=== PATIENT | female | born 1990 | race Caucasian/White ===

== ENCOUNTER 2023-02-23 16:55 | Emergency (ER) | payer BC, SELFPAY ==
[2023-02-23 17:02] VITALS: BP 112/71; PULSE 74; RESP 20; TEMP 36.6; O2SAT 100
--- NOTE | 2023-02-23 17:19 | ED.EAR ---
HPI - Ear Problem General Chief complaint: Ear Stated complaint: Poss Ear infection History of Present Illness HPI Narrative: Pt is a 32 y/o female, presents to with bilateral ear pain that began a few days ago. She notes she often has a lot of wax and irrigates her ears at home. This seems to cause dryness and canal itching. She denies otorrhea or fevers. She has no hearing loss and she denies any additional associated URI symptoms. Related Data Allergies Allergy/AdvReac Type Severity Reaction Status Date / Time No Known Allergies Allergy Verified 02/23/23 17:11 Review of Systems ENT: Comments: refer to HPI Exam Const: General: healthy appearing and no acute distress Nutritional Appearance: well nourished Orientation/consciousness: patient oriented x3 Limitations: no limitations HENMT: Head: normal to inspection Ears: TM's normal bilaterally and Abnormal EAC present (bilateral canal erythema with mild swelling. No mucopurulent drainage) Mouth: Yes Normal oral and palatal mucosa present Throat: posterior oropharynx normal and uvula midline Eyes: Conjunctivae: conjunctivae normal Pupils: Equal, round and reactive pupils present EOM: EOMs intact bilaterally Direct Ophthalmoscopy: no photophobia Neck: Neck: normal visual inspection, no lymphadenopathy and no meningeal signs Resp: Effort & Inspection: normal respiratory effort Auscultation: clear to auscultation bilaterally Cardio: Rate: regular rate Rhythm: regular rhythm Skin: General skin exam: normal color Rashes: no rashes Neuro: General: patient oriented x3, moves all extremities, no meningeal signs, no focal motor deficits and CN's II-XI intact bilaterally Course Course Emergency Course: exam, plan to discharge with abx drops, encouraging her to start daily antihistamine as directed OTC, vaseline or hydrocortisone cream inserted with her finger gently into the ear canal once abx are complete may reduce canal itching that contributes to itching and increases risk for abrased ear canals and secondary infection. She is agreeable with plan Level of Care: Express Care Visit ([id number]) Vital Signs Vital signs: Vital Signs Temperature 36.6 C 02/23/23 17:02 Pulse Rate 74 02/23/23 17:02 Respiratory Rate 20 02/23/23 17:02 Blood Pressure 112/71 02/23/23 17:02 Pulse Oximetry 100 02/23/23 17:02 Oxygen Delivery Room Air 02/23/23 17:02 Temperature 36.6 C 02/23/23 17:02 Pulse Rate 74 02/23/23 17:02 Respiratory Rate 20 02/23/23 17:02 Blood Pressure 112/71 02/23/23 17:02 Pulse Oximetry 100 02/23/23 17:02 Oxygen Delivery Room Air 02/23/23 17:02 Medical Decision Making MDM Narrative Medical decision making narrative: abx drops, FU with PCP to discuss ENT referral if symptoms continue reoccur. Pt is agreeable with plan Differential Diagnosis Differential Diagnosis: OTE, serous OM, cerumen impaction, seasonal allergies Vital Signs Vital Signs: Vital Signs Temperature 36.6 C 02/23/23 17:02 Pulse Rate 74 02/23/23 17:02 Respiratory Rate 20 02/23/23 17:02 Blood Pressure 112/71 02/23/23 17:02 Pulse Oximetry 100 02/23/23 17:02 Oxygen Delivery Room Air 02/23/23 17:02 Temperature 36.6 C 02/23/23 17:02 Pulse Rate 74 02/23/23 17:02 Respiratory Rate 20 02/23/23 17:02 Blood Pressure 112/71 02/23/23 17:02 Pulse Oximetry 100 02/23/23 17:02 Oxygen Delivery Room Air 02/23/23 17:02 Discharge Plan Discharge Clinical Impression: Otitis externa Qualifiers: Otitis externa type: other infective Chronicity: acute Laterality: bilateral Qualified Code(s): H60.393 - Other infective otitis externa, bilateral Patient Disposition: Home, Self-Care Condition: Stable Instructions: Antibiotic Form, Swimmer's Ear (ED) Additional Instructions: COMPLETE ANTIBIOTIC DROPS DIRECTED. SEE YOUR PRIMARY CARE PROVIDER IF SYMPTOMS ARE NOT RESOLVING IN 3 DAYS Prescriptions: New
== END 2023-02-23 17:29 | disposition home or self-care (01) ==
PROVIDERS: Emergency Provider Nurse Practitioner Family
DX: H60.393 Other infective otitis externa, bilateral (principal)
CPT/HCPCS: 99213; G0463